=== PATIENT | female | born 1990 | race African-American/Black ===

== ENCOUNTER 2019-08-08 15:16 | Emergency (ER) | payer MEDICAID, OTHER ==
[~2019-08-08] VITALS: Ht 175.3 cm; Wt 106.6 kg
[2019-08-08 16:58] VITALS: BP 127/74
[2019-08-08] MEDS ORDERED: TETANUS-DIPTH-ACEL PERTUSSIS 0.5ML SYR Tdap IM ONE (17:00)
== END 2019-08-08 18:06 | disposition home or self-care (01) ==
LOC: ER 15:16
DX: S91.331A Puncture wound without foreign body, right foot, initial encounter (principal); J45.909 Unspecified asthma, uncomplicated; Z88.1 Allergy status to other antibiotic agents; W22.8XXA Striking against or struck by other objects, initial encounter; Y93.89 Activity, other specified; Y92.89 Other specified places as the place of occurrence of the external cause; Y99.0 Civilian activity done for income or pay
CPT/HCPCS: 90471; 90715